=== PATIENT | male | born 2000 | race Caucasian/White ===

== ENCOUNTER 2022-06-24 08:16 | Emergency (ER) | payer BC ==
[~2022-06-24] VITALS: Ht 182.9 cm; Wt 113.6 kg
[2022-06-24 08:58] LABS: STREP SCREEN NEGATIVE
[2022-06-24 10:02] LABS: MONOSCREEN NEGATIVE
[2022-06-24 10:17] VITALS: BP 129/88; PULSE 88; TEMP 98.8
== END 2022-06-24 10:18 | disposition home or self-care (01) ==
LOC: COL.ER 08:16
PROVIDERS: Emergency Medicine
DX: J02.9 Acute pharyngitis, unspecified (principal); Z20.822 Contact with and (suspected) exposure to COVID-19
CPT/HCPCS: J8540